=== PATIENT | male | born 1950 | race Caucasian/White ===

== ENCOUNTER → 2017-04-02 | Outpatient (CLI) | payer MEDICARE | END | disposition home or self-care (01) | LOC: GMAL 10:25 | PROVIDERS: ATTEND Family Medicine | DX: Z12.5 Encounter for screening for malignant neoplasm of prostate (principal); D51.3 Other dietary vitamin B12 deficiency anemia; R53.82 Chronic fatigue, unspecified; E55.9 Vitamin D deficiency, unspecified; M79.1 Myalgia | CPT/HCPCS: 82306; 82607; 83735; 84439; 84443; G0103 ==

== ENCOUNTER 2017-07-26 17:34 | Emergency (ER) | payer MEDICARE ==
--- NOTE | 2017-07-26 18:14 | ED.PDOC ---
History of Present Illness - General Chief Complaint: Fever Stated Complaint: fever,cough Time Seen by Provider: 07/26/17 18:06 Source: patient Exam Limitations: no limitations - History of Present Illness Initial Comments: Dhruv Munoz 66 y/o male stated for the last 4 days had dry cough and today developed fever.Had flu immunization 2 days ago.No sob,chest pain nuseaor vomiting during coughing episodes. Timing/Duration: getting worse - 4 days, other Severity: moderate Improving Factors: nothing Worsening Factors: nothing Associated Symptoms: other - see hpi Allergies/Adverse Reactions: Allergies Penicillins Allergy (Unknown, Verified 04/03/16 20:59) Home Medications: Ambulatory Orders Albuterol Inhaler [Ventolin Hfa Inhaler] 2 puff IN Q6HR PRN #1 inh 07/26/17 Azithromycin [Zithromax Z-Cosme] 1 ea PO DAILY #1 pack 07/26/17 Benzonatate Perles [Tessalon Perles] 200 mg PO BID #40 cap 07/26/17 Review of Systems - Review of Systems Constitutional: States: no symptoms reported EENTM: States: no symptoms reported Respiratory: States: see HPI Cardiology: States: no symptoms reported Gastrointestinal/Abdominal: States: no symptoms reported Genitourinary: States: no symptoms reported Past Medical History (General) - Patient Medical History Hx Seizures: No Hx Stroke: No Hx Dementia: No Hx Asthma: No Hx of COPD: No Hx Cardiac Disorders: No Hx Congestive Heart Failure: No Hx Pacemaker: No Hx Hypertension: No Hx Thyroid Disease: No Hx Diabetes: No Hx Gastroesophageal Reflux: Yes Hx Renal Disease: No Hx Cancer: Yes - Skin Hx of HIV: No Hx Hepatitis C: No Hx MRSA: No Surgical History: appendectomy, cholecystectomy - Vaccination History Hx Tetanus, Diphtheria Vaccination: Yes Hx Influenza Vaccination: Yes - 2017 Hx Pneumococcal Vaccination: No - Social History Hx Tobacco Use: Yes Hx Chewing Tobacco Use: No Hx Alcohol Use: Yes Hx Substance Use: No Hx Substance Use Treatment: No Hx Depression: No Hx Physical Abuse: No Hx Emotional Abuse: No Hx Suspected Abuse: No - Activities of Daily Living Patient Lives Alone: No Grooming Ability: Independent Eating (Feeding) Ability: Independent Toileting Ability: Independent - Female History Patient : No Family Medical History - Family History Mother Hx Cardiac Disease: Yes - brother Hx Family Cancer: Yes - uterus-mom;prostate-brother Physical Exam - Physical Exam General Appearance: Alert, Comfortable, No apparent distress Eye Exam: bilateral normal Ears, Nose, Throat: hearing grossly normal, normal ENT inspection, normal pharynx Neck: non-tender, supple Respiratory: chest non-tender, no respiratory distress, rhonchi - bilaterally Cardiovascular/Chest: normal peripheral pulses, regular rate, rhythm, no gallop , no murmur Peripheral Pulses: radial,right: 2+, radial,left: 2+ Gastrointestinal/Abdominal: normal bowel sounds, non tender, soft, no organomegaly Back Exam: no CVA tenderness, no vertebral tenderness Extremity: no pedal edema, no calf tenderness Neurologic: alert, oriented x 3 Progress - Progress Progress: 07/26/17 18:19 Vital Signs - 8 hr 07/26/17 17:51 Temperature 102.6 F H Pulse Rate [ 85 Left Brachial] Respiratory 20 Rate Blood Pressure 159/90 [Left Arm] O2 Sat by Pulse 92 L Oximetry - Results/Orders Results/Orders: Laboratory Tests 07/26/17 07/26/17 18:26 18:26 WBC 3.6 L RBC 4.33 L Hgb 13.4 L Hct 39.2 L MCV 90.6 MCH 30.9 MCHC 34.3 RDW 13.3 Plt Count 165 MPV 7.8 Absolute Neuts (auto) 2.20 Absolute Lymphs (auto) 0.70 L Absolute Monos (auto) 0.60 Absolute Eos (auto) 0.00 Absolute Basos (auto) 0.00 Neutrophils % 62.9 Lymphocytes % 18.7 L Monocytes % 18.0 H Eosinophils % 0.1 L Basophils % 0.3 Sodium 135 Potassium 3.6 Chloride 103 Carbon Dioxide 27 Anion Gap 8.6 L BUN 18 Creatinine 1.36 H BUN/Creatinine Ratio 13.2 Random Glucose 103 Serum Osmolality 272.3 L Calcium 8.6 Total Bilirubin 0.6 AST 23 ALT 14 Alkaline Phosphatase 66 Serum Total Protein 7.0 Albumin 3.5 Globulin 3.5 Albumin/Globulin Ratio 1.0 L Flu swab negative a/b - EKG/XRAY/CT XRAY: chest - no acute abnormalities Departure - Departure Clinical Impression: Bronchitis Time of Disposition: 20:35 Disposition: Discharge to Home or Self Care Condition: Good Departure Forms: ED Discharge - Pt. Copy, Patient Portal Self Enrollment Instructions: DI for Acute Bronchitis, Acute Bronchitis, Serious Ways to Stop Smoking, Nicotine Addiction, Presenting Lung Age Spirometry Results Increases Smoking Cessation at 12 Mo Referrals: Willie James III, MD [Primary Care Provider] - 1-2 Weeks Prescriptions: Albuterol Inhaler [Ventolin Hfa Inhaler] 2 puff IN Q6HR PRN #1 inh PRN Reason: Cough Azithromycin [Zithromax Z-Cosme] 1 ea PO DAILY #1 pack Benzonatate Perles [Tessalon Perles] 200 mg PO BID #40 cap Home Medications: Ambulatory Orders Albuterol Inhaler [Ventolin Hfa Inhaler] 2 puff IN Q6HR PRN #1 inh 07/26/17 Azithromycin [Zithromax Z-Cosme] 1 ea PO DAILY #1 pack 07/26/17 Benzonatate Perles [Tessalon Perles] 200 mg PO BID #40 cap 07/26/17 Additional Instructions: Follow up with primary md 07/30/2017 call for appointment;Return to Emergency room as needed
[2017-07-26] MEDS ORDERED: IPRATROPIUM/ALBUTEROL 3 ML VIAL NEB ONE (18:16)
[2017-07-26] MEDS ORDERED: ACETAMINOPHEN 500 MG TAB ONE (18:48)
[2017-07-26] MEDS ORDERED: ACETAMINOPHEN 500 MG TAB PO ONE (18:48)
--- NOTE | 2017-07-26 19:05 | RAD ---
EXAM DESCRIPTION: Chest,2 Views CLINICAL HISTORY: cough /fever COMPARISON: None. FINDINGS: Two views of the chest are submitted. Cardiac silhouette appears normal. No focal parenchymal or pleural disease. No acute bony abnormality. There is no significant pulmonary vascular engorgement. IMPRESSION: No evidence of acute cardiopulmonary disease. Electronically signed by: Edgardo Jo 07/26/2017 7:04 PM SHANK BONER
[2017-07-26] MEDS ORDERED: LEVALBUTEROL NEBS 1.25 MG/3 ML VIAL NEB ONE (19:32)
[2017-07-26] MEDS ORDERED: AZITHROMYCIN 250 MG TAB PO ONE (19:34)
[2017-07-26] MEDS ORDERED: diphenhydrAMINE HCL 25 MG CAP PO ONE (20:34)
[2017-07-26] MEDS ORDERED: BENZONATATE PERLES 100 MG CAP PO ONE (20:34)
[2017-07-26] MEDS ORDERED: diphenhydrAMINE HCL 25 MG CAP ONE (21:46)
[2017-07-26] MEDS ORDERED: BENZONATATE PERLES 100 MG CAP ONE (21:46)
[2017-07-26 22:08] VITALS: BP 127/71; TEMP 100.5; O2SAT 91
== END 2017-07-26 22:12 | disposition home or self-care (01) ==
LOC: ER 17:34 → EDSTATUS 17:41 → ER 22:12
DX: J40 Bronchitis, not specified as acute or chronic (principal); F17.200 Nicotine dependence, unspecified, uncomplicated; Z88.0 Allergy status to penicillin
CPT/HCPCS: 36415; 71020; 80053; 85025; 87502; 94640; J7614; J7620; Q0144; Q0163

== ENCOUNTER → 2018-02-18 | Outpatient (CLI) | payer MEDICARE | LOC: LAB.NP 16:37 | PROVIDERS: ATTEND Family Medicine | DX: D51.3 Other dietary vitamin B12 deficiency anemia (principal) ==

== ENCOUNTER → 2018-02-20 | Outpatient (CLI) | payer MEDICARE ==
--- NOTE | 2018-02-20 11:21 | MRI ---
Study: MRI of the Right Shoulder. Indication: RT SHOULDER BURSITIS Technique: Multiplanar, multi sequence MRI of the right shoulder was obtained without intravenous contrast. Comparison: None. Findings: Moderate hypertrophic AC joint osteoarthritis. Type I acromion with moderate lateral downsloping. Supraspinatus and infraspinatus tendinosis noted with irregular full-thickness, fullwidth supraspinatus tendon tearing. Torn tendon fibers medially retracted by 20 mm to the level of the lateral margin acromion. Subscapularis tendinosis with subtle intermediate grade interstitial tearing superiorly. Teres minor tendon intact. Rotator cuff musculature normal without atrophy, fatty infiltration, or intramuscular edema. Intracapsular long head biceps tendinosis. Circumferential labral tearing and truncation. Extensive grade 4 chondral loss and subchondral cystic change of the central to inferior aspect of the glenoid and most pronounced posteriorly. Additional less pronounced grade 2 and 3 chondral thinning throughout the remainder of the joint. Small inferior osteophytes. Tiny joint effusion. No acute fracture. Impression: Full-thickness, fullwidth mildly retracted supraspinatus tendon tear. Infraspinatus and subscapularis tendinosis with intermediate grade interstitial tearing superior margin subscapularis tendon. Intracapsular long head biceps tendinosis. Circumferential labral tearing and truncation. Moderate glenohumeral joint osteoarthritis. Moderate hypertrophic AC joint osteoarthritis. Electronically signed by: Zoran Schwartz MD 02/20/2018 11:20 AM CDT
== END ==
LOC: MRI 07:00
PROVIDERS: ATTEND Family Medicine
DX: M75.51 Bursitis of right shoulder (principal); M75.101 Unspecified rotator cuff tear or rupture of right shoulder, not specified as traumatic; M19.011 Primary osteoarthritis, right shoulder

== ENCOUNTER → 2018-12-26 | Outpatient (CLI) | payer MEDICARE ==
--- NOTE | 2018-12-26 13:22 | US ---
EXAM DESCRIPTION: Renal: Ultrasound. CLINICAL HISTORY: 68 years Male CYST OF KIDNEY COMPARISON: Bilateral renal arterial Doppler evaluation on the same visit. TECHNIQUE: Transcutaneous scanning: Two-dimensional and Doppler modes. FINDINGS: Right kidney measures 10.2 x 5.0 x 4.9 cm; mid-renal cortical thickness normal. . Echogenicity equal to the liver. Age-related heterogeneity and decreased echoes in the cortex. No hydronephrosis No echogenic stones. Smooth contour of the kidney with no perinephric fluid. Normal vascularity. Proximal ureter not visualized. Left kidney measures 10.1 x 4.9 x 4.6 cm; mid-renal cortical thickness normal.. Cortical echogenicity equal to the liver with age-related. Heterogeneity and decreased echoes. No hydronephrosis. No echogenic stones. 1.8 cm anechoic smooth-walled cyst in the lower pole. Smooth contour of the kidney with no perinephric fluid. Normal vascularity.. Proximal ureter not visualized. Urinary bladder was visualized. Volume not measured. No Doppler for Ureteral jets. Abdominal aorta: not measured. IMPRESSION: 1. Normal size of the kidneys and normal cortical thickness. Age-related changes in the bilateral cortex. 2. Cyst in the inferior pole of the left kidney. The bladder was visualized with limited scanning. Electronically signed by: Edgardo Quevedo MD 12/26/2018 1:18 PM CDT
== END ==
LOC: US 08:00
PROVIDERS: ATTEND Family Medicine
DX: N28.1 Cyst of kidney, acquired (principal)

== ENCOUNTER → 2019-05-02 | Outpatient (CLI) | payer MEDICARE ==
--- NOTE | 2019-05-02 11:11 | US ---
EXAM DESCRIPTION: Renal Arteries Doppler sonogram CLINICAL HISTORY: 68 years Male, HYPERTENSION COMPARISON: None. TECHNIQUE: Doppler sonographic evaluation of the renal arteries was performed. Color Doppler and grayscale images are evaluated. FINDINGS: Right renal artery. Distal right renal artery peak systolic velocity is 60 cm/s. The mid right renal artery velocity is 89 cm/s. Proximal right renal artery peak systolic velocity is not measured, apparently technically difficult to visualize. Aortic velocity at this level is 83 cm/s. Therefore the measured renal artery velocities are normal. No direct evidence of renal artery stenosis. Left renal artery. Proximal left renal artery peak systolic velocity is 60 cm/s. Mid left renal artery peak systolic velocity is 63 cm/s in the distal left renal artery peak systolic velocity is 64 cm/s. These velocities are normal. No direct evidence of renal artery stenosis. IMPRESSION: No direct evidence of renal artery stenosis. Electronically signed by: Kyle Lange MD 05/02/2019 11:10 AM CDT
== END ==
LOC: US 07:45
PROVIDERS: ATTEND Family Medicine
DX: I10 Essential (primary) hypertension (principal)

== ENCOUNTER 2019-09-27 14:01 | Emergency (ER) | payer MEDICARE ==
[2019-09-27] MEDS ORDERED: SODIUM CHLORIDE 0.9% (FLUSH) 10 ML SYG IV PRN (14:09)
[2019-09-27] MEDS ORDERED: ONDANSETRON INJ 4 MG/2 ML VIAL IV ONE (14:10)
--- NOTE | 2019-09-27 14:36 | RAD ---
EXAM: XR Chest, 1 View CLINICAL HISTORY: elevated blood pressure TECHNIQUE: Frontal view of the chest. COMPARISON: 07/26/2017. FINDINGS: Lungs: Unremarkable. No consolidation. Pleural space: Unremarkable. No pneumothorax. Heart: Unremarkable. No cardiomegaly. Mediastinum: Unremarkable. Bones/joints: Unremarkable. IMPRESSION: No abnormality noted. Electronically signed by: Pema Chahal MD 09/27/2019 2:34 PM LINE THERAPIST
[2019-09-27] MEDS ORDERED: PROMETHAZINE HCL INJ 12.5 MG in SODIUM CHLORIDE 0.9% 50ML 50 ML IVPB ONE (15:23)
[2019-09-27] MEDS ORDERED: SODIUM CHLORIDE 0.9% 1000ML 1,000 ML IVS ONE (15:23)
[2019-09-27] MEDS ORDERED: KETOROLAC TROMETHAMINE INJ 30 MG/ML VIAL IV ONE (15:23)
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
[2019-09-27] MEDS ORDERED: SODIUM CHLORIDE 0.9% 50ML 50 ML ONE (15:38)
[2019-09-27] MEDS ORDERED: PROMETHAZINE HCL INJ 25 MG/ML VIAL ONE (15:38)
[2019-09-27 16:14] VITALS: TEMP 96.8
[2019-09-27] MEDS ORDERED: LABETALOL INJ 5 MG/ML VIAL ONE (16:21)
[2019-09-27] MEDS ORDERED: LABETALOL INJ 5 MG/ML VIAL IV ONE (16:26)
[2019-09-27] MEDS ORDERED: ACETAMINOPHEN 500 MG TAB PO ONE (16:50)
[2019-09-27] MEDS ORDERED: CYCLOBENZAPRINE HCL 10 MG TAB PO ONE (16:50)
[2019-09-27 18:14] VITALS: BP 114/71; O2SAT 98
== END 2019-09-27 18:10 | disposition home or self-care (01) ==
LOC: ER 14:01
DX: G43.001 Migraine without aura, not intractable, with status migrainosus (principal); R06.00 Dyspnea, unspecified; I10 Essential (primary) hypertension; K21.9 Gastro-esophageal reflux disease without esophagitis; Z87.820 Personal history of traumatic brain injury; Z79.899 Other long term (current) drug therapy; Z88.0 Allergy status to penicillin; Z85.828 Personal history of other malignant neoplasm of skin; Z87.891 Personal history of nicotine dependence
CPT/HCPCS: 36415; 71045; 80053; 83690; 83880; 84484; 85025; 87502; 93005; 94760; A4216; J1885; J2405; J2550; J7030

== ENCOUNTER → 2020-03-15 | Outpatient (CLI) | payer MEDICARE ==
--- NOTE | 2020-03-15 15:53 | RAD ---
EXAM DESCRIPTION: Hip,Left 2 Views CLINICAL HISTORY: 69 years Male, LOW BACK PAIN COMPARISON: None available. FINDINGS: The visualized bones are well-mineralized.No acute fracture or dislocation. Mild left hip osteoarthritis. The soft tissues appear grossly unremarkable. IMPRESSION: Mild left hip osteoarthritis. Electronically signed by: Giana Salas MD 03/15/2020 3:52 PM CDT
--- NOTE | 2020-03-15 15:53 | RAD ---
EXAM DESCRIPTION: Lumbar Spine 3 Views CLINICAL HISTORY: 69 years Male, LOW BACK PAIN COMPARISON: None available. FINDINGS: The vertebral body heights are well-maintained with no acute compression deformity. Multilevel degenerative disc disease and facet arthropathy, worse at L5-S1 level. No evidence of spondylolysis or spondylolisthesis. The visualized prevertebral and paravertebral soft tissues appear grossly unremarkable. IMPRESSION: Multilevel degenerative disc disease and facet arthropathy, worse at L5-S1 level. Electronically signed by: Giana Salas MD 03/15/2020 3:51 PM CDT
== END ==
LOC: RAD 15:22
PROVIDERS: ATTEND Emergency Medicine
DX: M51.37 Other intervertebral disc degeneration, lumbosacral region (principal); M46.96 Unspecified inflammatory spondylopathy, lumbar region; M16.12 Unilateral primary osteoarthritis, left hip